=== PATIENT | male | born 1960 | race African-American/Black ===

== ENCOUNTER 2022-05-07 09:55 | Outpatient (CLI) | payer OTHER ==
[2022-05-07 10:55] LABS: Anion Gap 14 mmol/L (10-20); BUN (Urea Nitrogen) 13 mg/dL (8.4-25.7); Calc. Creatinine Clearance 0 mL/min (70-130); Calcium 8.9 mg/dL (7.8-10.44); Carbon Dioxide 24 mmol/L (23-31); Chloride 103 mmol/L (98-107); Glucose 108 mg/dL (80-115); Potassium 3.9 mmol/L (3.5-5.1); Sodium 137 mmol/L (136-145)
[2022-05-07 11:16] LABS: Hemoglobin 11.7 g/dL (13.5-17.5); Mean Corpuscular HGB CONC 32.1 g/dL (32.0-36.0); Mean Corpuscular Hemoglobin 22.2 pg (27.0-33.0); Mean Corpuscular Volume 69.1 fl (81.2-95.1); Mean Platelet Volume 9.4 fl (7.4-10.4); Platelet Count 245 10x3/uL (150-450); RBC Distribution Width 19.6 % (11.5-14.5); Red Blood Cell (RBC) Count 5.28 10x6/uL (4.32-5.72); White Blood Cell (WBC) Count 8.5 10x3/uL (3.5-10.5)
== END 2022-05-07 09:56 | disposition home or self-care (01) ==
LOC: LABBT 09:55
PROVIDERS: ATTEND Thoracic Surgery (Cardiothoracic Vascular Surgery)
DX: Z01.812 Encounter for preprocedural laboratory examination (principal); I73.9 Peripheral vascular disease, unspecified; Z20.822 Contact with and (suspected) exposure to COVID-19
CPT/HCPCS: 80048; 85027; U0003; U0005

== ENCOUNTER 2022-05-10 08:13 | Day surgery (SDC) | payer OTHER ==
[2022-05-08 10:51] VITALS: BMI 25.0
[2022-05-10] MEDS ORDERED: Iopamidol 370 76% 50 ML VIAL FS ONE (10:35)
[2022-05-10] MEDS ORDERED: Lidocaine 1% (PF) 30 ML VIAL ONE (10:50)
[2022-05-10] MEDS ORDERED: Heparin 10,000 UNITS/ 10 ML VIAL ONE (12:07)
[2022-05-10] MEDS ORDERED: Fentanyl 100 MCG/2 ML VIAL ONE (12:25)
[2022-05-10] MEDS ORDERED: Clopidogrel Bisulfate 75 MG TAB ONE (13:05)
== END 2022-05-10 15:08 | disposition home or self-care (01) ==
LOC: SDC 08:13
PROVIDERS: ATTEND Thoracic Surgery (Cardiothoracic Vascular Surgery)
PROC: 047L3Z1 Dilation of Left Femoral Artery using Drug-Coated Balloon, Percutaneous Approach (ICD-10-PCS; principal; 2022-05-10)
DX: I77.9 Disorder of arteries and arterioles, unspecified (principal); I10 Essential (primary) hypertension; E78.2 Mixed hyperlipidemia; F17.210 Nicotine dependence, cigarettes, uncomplicated; Z79.82 Long term (current) use of aspirin; Z79.899 Other long term (current) drug therapy
CPT/HCPCS: 36247; 37224; 75710; 85347; C1725; J1644; J2001; J3010; Q9967